=== PATIENT | male | born 1940 | race Caucasian/White ===

== ENCOUNTER 2021-12-06 18:54 | Emergency (ER) | payer MEDICARE, OTHER ==
--- NOTE | 2021-12-06 19:10 | ED Abdominal Pain ---
General Stated Complaint: ABD PAIN Source of Information: Patient History of Present Illness Date Seen by Provider: Dec 06, 2021 Time Seen by Provider: 19:06 Initial Comments 81-year-old male presenting with complaints of abdominal pain that has been w orsening over the last 2 to 3 weeks. He had been seen by Dr. Jack in the clinic today and reports that they did xrays of abdomen and felt he was "blocked up" so he was told to take Miralax and given prescription for Metoclopramide. Patient states that when he went to take the metoclopramide to return to take food with that. When he tried eating that caused him to have increased abdominal pain and retching. He has not had a normal bowel movement for several weeks. He has only had small thin ribbons of stool and with the MiraLAX he has had mostly just liquid stool. He has increased pain with trying to eat or drink. The pain is diffuse across his abdomen. He states he has had his gallbladder removed previously. he has not had fever or chills. He denies having pain with urination, blood in his stool, trauma to his abdomen Timing/Duration: Getting Worse (Over the last several weeks) Severity/Quality: Severe Location: Generalized Abdomen Activities at Onset: None Modifying Factors: Worsens With Eating Associated Symptoms: No Back Pain, No Chest Pain, No Diaphoresis, No Fever/Chills, No Fatigue, No Headache, No Heartburn; Nausea/Vomiting; No Rash, No Shortness of Air, No Swelling/Mass in Abdomen, No Syncope, No Weakness Allergies and Home Medications Allergies Coded Allergies: No Known Drug Allergies (Unverified , 12/06/21) Patient Home Medication List Home Medication List Reviewed: Yes Review of Systems Review of Systems Constitutional: No chills, No fever EENTM: No Symptoms Reported Respiratory: No Symptoms Reported Cardiovascular: No Symptoms Reported Gastrointestinal: See HPI Genitourinary: Denies Burning, Denies Discharge, Denies Pain Musculoskeletal: No joint pain, No joint swelling, No muscle pain Skin: No rash Psychiatric/Neurological: No Symptoms Reported Endocrine: No Symptoms Reported Physical Exam Vital Signs Vital Signs - First Documented 12/06/21 19:02 Temp 36.1 Pulse 83 Resp 18 B/P (MAP) 144/85 (104) Pulse Ox 98 O2 Delivery Room Air Capillary Refill : Height/Weight/BMI Height: '" Weight: lbs. oz. kg; BMI Method: General Appearance: WD/WN, no apparent distress HEENT: PERRL/EOMI, pharynx normal Neck: non-tender, full range of motion, supple, normal inspection Respiratory: chest non-tender, lungs clear, normal breath sounds, no re spiratory distress, no accessory muscle use Cardiovascular: normal peripheral pulses, regular rate, rhythm Gastrointestinal: soft, no pulsatile mass, abnormal bowel sounds (Hypoactive); No distended; guarding; No rebound; tenderness (Diffuse mild tenderness) Rectal: deferred Extremities: normal range of motion, non-tender, normal capillary refill Back: no CVA tenderness Neurologic/Psychiatric: alert, oriented x 3 Skin: normal color, warm/dry Progress/Results/Core Measures Results/Orders Lab Results Laboratory Tests Test 12/06/21 19:08 12/06/21 21:10 Range/Units White Blood Count 8.2 4.3-11.0 10^3/uL Red Blood Count 5.25 4.30-5.52 10^6/uL Hemoglobin 15.2 13.3-17.7 g/dL Hematocrit 42 40-54 % Mean Corpuscular Volume 80 80-99 fL Mean Corpuscular Hemoglobin 29 25-34 pg Mean Corpuscular Hemoglobin Concent 36 32-36 g/dL Red Cell Distribution Width 12.8 10.0-14.5 % Platelet Count 157 130-400 10^3/uL Mean Platelet Volume 8.8 L 9.0-12.2 fL Immature Granulocyte % (Auto) 0 % Neutrophils (%) (Auto) 74 42-75 % Lymphocytes (%) (Auto) 12 12-44 % Monocytes (%) (Auto) 10 0-12 % Eosinophils (%) (Auto) 3 0-10 % Basophils (%) (Auto) 0 0-10 % Neutrophils # (Auto) 6.0 1.8-7.8 10^3/uL Lymphocytes # (Auto) 1.0 1.0-4.0 10^3/uL Monocytes # (Auto) 0.8 0.0-1.0 10^3/uL Eosinophils # (Auto) 0.3 0.0-0.3 10^3/uL Basophils # (Auto) 0.0 0.0-0.1 10^3/uL Immature Granulocyte # (Auto) 0.0 0.0-0.1 10^3/uL Sodium Level 129 L 135-145 MMOL/L Potassium Level 3.4 L 3.6-5.0 MMOL/L Chloride Level 92 L 98-107 MMOL/L Carbon Dioxide Level 23 21-32 MMOL/L Anion Gap 14 5-14 MMOL/L Blood Urea Nitrogen 13 7-18 MG/DL Creatinine 0.76 0.60-1.30 MG/DL Estimat Glomerular Filtration Rate 91 BUN/Creatinine Ratio 17 Glucose Level 120 H 70-105 MG/DL Calcium Level 9.9 8.5-10.1 MG/DL Corrected Calcium 8.5-10.1 MG/DL Total Bilirubin 0.7 0.1-1.0 MG/DL Aspartate Amino Transf (AST/SGOT) 23 5-34 U/L Alanine Aminotransferase (ALT/SGPT) 25 0-55 U/L Alkaline Phosphatase 90 40-136 U/L Total Protein 7.1 6.4-8.2 GM/DL Albumin 4.7 H 3.2-4.5 GM/DL Lipase 141 H 8-78 U/L Urine Color YELLOW Urine Clarity CLEAR Urine pH 6.5 5-9 Urine Specific Tamiment <=1.005 1.016-1.022 Urine Protein NEGATIVE NEGATIVE Urine Glucose (UA) NEGATIVE NEGATIVE Urine Ketones NEGATIVE NEGATIVE Urine Nitrite NEGATIVE NEGATIVE Urine Bilirubin NEGATIVE NEGATIVE Urine Urobilinogen 0.2 < = 1.0 MG/DL Urine Leukocyte Esterase NEGATIVE NEGATIVE Urine RBC (Auto) NEGATIVE NEGATIVE Urine RBC NONE /HPF Urine WBC NONE /HPF Urine Squamous Epithelial Cells RARE /HPF Urine Crystals NONE /LPF Urine Bacteria NEGATIVE /HPF Urine Casts NONE /LPF Urine Mucus NEGATIVE /LPF Urine Culture Indicated NO My Orders Orders - FERN MICHAUD MD Comprehensive Metabolic Panel (12/06/21 19:09) Lipase (12/06/21 19:09) Ua Culture If Indicated (12/06/21 19:09) Ed Iv/Invasive Line Start (12/06/21 19:09) Cbc With Automated Diff (12/06/21 19:09) Ns Iv 500 Ml (Sodium Chloride 0.9%) (12/06/21 19:27) Ketorolac Injection (Toradol Injection) (12/06/21 19:27) Ct Abdomen/Pelvis W (12/06/21 19:27) Iohexol Injection (Omnipaque 350 Mg/Ml 1 (12/06/21 19:30) Received Contrast (Hold Metformin- Contr (12/06/21 19:30) Ns (Ivpb) (Sodium Chloride 0.9% Ivpb Bag (12/06/21 19:30) Ns Iv 1000 Ml (Sodium Chloride 0.9%) (12/06/21 22:09) Fentanyl Inj (Sublimaze Injection) (12/06/21 22:09) Medications Given in ED Current Medications Medications Dose Ordered Sig/Catalina Route Start Time Stop Time Status Last Admin Dose Admin Iohexol 100 ml ONCE ONCE IV 12/06/21 19:30 12/06/21 19:31 DC 12/06/21 19:56 100 ML Sodium Chloride 100 ml ONCE ONCE IV 12/06/21 19:30 12/06/21 19:31 DC 12/06/21 19:56 100 ML Vital Signs/I&O 12/06/21 12/06/21 19:02 23:10 Temp 36.1 Pulse 83 67 Resp 18 16 B/P (MAP) 144/85 (104) 136/86 Pulse Ox 98 97 O2 Delivery Room Air Room Air 12/07/21 00:00 Intake Total 1000 ml Balance 1000 ml Progress Progress Note #1: Progress Note Obtain basic labs and urinalysis. With his diffuse abdominal pain and worsening symptoms when trying to eat or drink anything will obtain a CT scan to evaluate in finer detail than the plain films that were obtained earlier. Ordered IV fluids 1 L normal saline for hydration, Toradol 15 mg IV for pain. Progress Note #2: Progress Note Labs appear stable without acute significant abnormality. CT scan showed large mass in the pancreas measured 8 x 8.3 cm. Discussed results with patient he did report that his pain was doing better. Will check with [facility] to see if he could be admitted for pain control as well as possible biopsy of the mass to determine its etiology and future treatment plan [address] Chavarria for [facility] at [facility]. She reported that she did not have anyone that would be able to do a biopsy of the pancreas at [facility] and recommended trying to get the patient to facility in [place] or [place]. The patient had voiced interest in going to [facility] since he had a friend with pancreatic cancer that goes there. 2142 I spoke with PARDEEP Nielson the nursing crane crew supervisor at [facility]. She took down information and will have the hospitalist call me back. 2200 nurse practitioner Tawana Lawson called back and accepted patient on behalf of Dr. Ramon. We will administer IV fluids and a dose of fentanyl for pain. Patient asked about driving to [facility] and started taking an ambulance. Advised that they would have to check out of the ED here and would have to start over in the emergency department at [facility] if they went by private vehicle. Diagnostic Imaging Diagonstic Imaging: CT Plain Films/CT/US/NM/MRI: abdomen, pelvis Comments [facility] [place], [place] NAME: DANIE ORELLANA [facility] REC#: [id number] PT STATUS: REG ER : 1940 PHYSICIAN: FERN MICHAUD MD ADMIT DATE: 12/06/21/ER FS Signed Date of Exam:12/06/21 CT ABDOMEN/PELVIS W PROCEDURE: CT abdomen and pelvis with contrast. TECHNIQUE: Multiple contiguous axial images were obtained through the abdomen and pelvis after administration of intravenous contrast. Auto Exposure Controls were utilized during the CT exam to meet ALARA standards for radiation dose reduction. All CT scans use one or more of the following dose optimizing techniques: automated exposure control, MA and/or KvP adjustment based on patient size and exam type or iterative reconstruction. DATE: December 06, 2021. COMPARISON: None. INDICATION: 81-year-old male, abdominal pain after eating. FINDINGS: The visualized portions of the lung bases are grossly clear. The heart is not enlarged. There is no pericardial effusion. There is a large hiatal hernia. There is diffuse abnormal wall thickening of the stomach. The liver is unremarkable in size and contour. There is no identified liver lesion. The main, right, and left portal veins are patent. The gallbladder is surgically absent. There is no intrahepatic or extrahepatic bile duct dilation. There is a large predominantly low-attenuation mass measuring approximately 8.0 x 8.3 cm in size centered in the region of the pancreatic head and proximal pancreatic body with extension beyond the expected pancreatic parenchymal margins. There is direct contact and narrowing of the main portal vein near the portal splenic confluence. 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 The additional portions of the splenic vein are patent outside of the mass. There is encasement of the common hepatic artery and splenic artery. There is also direct contact of the superior mesenteric artery near its origin. The mass extends very near the abdominal aorta on axial image 62. The mass also closely approximates the inferior vena cava although there does appear to be a thin preserved fat plane at this location. There is an accessory splenule. There is a low-attenuation splenic lesion on axial image 61 which is nonspecific measuring 11 mm in size. There are additional more subtle low-attenuation foci present in the spleen. The adrenal glands are unremarkable. There are benign renal cysts. The urinary collecting systems are not distended. There is no identified renal or ureteral stone. The urinary bladder is unremarkable. The prostate gland is prominent in size. The intestinal tract is not grossly distended. There is no free intraperitoneal air. There is no drainable fluid collection. There is no free fluid in the abdomen or pelvis. There are atherosclerotic calcifications. There is no identified abnormally enlarged lymph node in the abdomen or pelvis meeting CT size criteria for adenopathy. There are multilevel degenerative changes of the spine. There is no identified bone lesion suspicious for a bone metastasis. There is no identified acute bony abnormality. IMPRESSION: CT ABDOMEN AND PELVIS. 1. 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 2. Diffuse abnormal wall thickening of the stomach which may reflect gastritis or malignancy. Large hiatal hernia. 3. Nonspecific low-attenuation foci in the spleen. 4. The prostate gland is prominent in size. Dictated by: Dictated on workstation # [id number] Dict: 12/06/212012 Trans: 12/06/212040 [facility] [id number] Interpreted by: LAVINIA GOFF MD Electronically signed by: LAVINIA GOFF MD 12/06/212040 Reviewed: Reviewed by Ks Departure Impression Primary Impression: Diffuse abdominal pain Additional Impressions: Pancreatic mass Nausea and vomiting in adult Disposition: 02 XFER SHT-TRM HOSP Condition: Stable Transfer Transfer Reason: Exceeds level of care (Need for biopsy of pancreatic mass) Time Spoke to Accepting Phy: 22:01 Transfer Progress Notes Discussed with nurse practitioner Tawana Lawson who accepted on behalf of attending Dr. Ramon. Patient accepted for transfer and work-up of abdominal pain with pancreatic mass and concern for cancer. Transfer Facility: [facility] Method of Transfer: EMS Departure-Patient Inst. Referrals: CARMINA JACK MD (PCP/Family) Primary Care Physician FERN MICHAUD MD Dec 06, 2021 19:10
[2021-12-06 19:15] LABS: BASOPHILS % (AUTO) 0 % (0-10); EOSINOPHILS # (AUTO) 0.3 10^3/uL (0.0-0.3); EOSINOPHILS % (AUTO) 3 % (0-10); HEMATOCRIT 42 % (40-54); HEMOGLOBIN 15.2 g/dL (13.3-17.7); LYMPHOCYTES % (AUTO) 12 % (12-44); MEAN CORPUSCULAR HEMOGLOBIN 29 pg (25-34); MEAN CORPUSCULAR HGB CONC 36 g/dL (32-36); MEAN CORPUSCULAR VOLUME 80 fL (80-99); MEAN PLATELET VOLUME 8.8 fL (9.0-12.2); MONOCYTES # (AUTO) 0.8 10^3/uL (0.0-1.0); MONOCYTES % (AUTO) 10 % (0-12); NEUTROPHILS % (AUTO) 74 % (42-75); PLATELET COUNT 157 10^3/uL (130-400); WHITE BLOOD COUNT 8.2 10^3/uL (4.3-11.0)
[2021-12-06] MEDS ORDERED: KETOROLAC 30 MG/ML VIAL IVP STA (19:27)
[2021-12-06] MEDS ORDERED: NS IV 500 ML 500 ML IV STA (19:27)
[2021-12-06] MEDS ORDERED: HOLD METFORMIN - RECEIVED CONTRAST 20 ML VIAL IV SCH (19:30)
[2021-12-06] MEDS ORDERED: NS 100 ML (IVPB) BAG IV ONE (19:30)
[2021-12-06] MEDS ORDERED: IOHEXOL 350 MG/ML 100 ML (OMNIPAQUE 350) VIAL IV ONE (19:30)
[2021-12-06 19:35] LABS: ALANINE AMINOTRANSFERASE 25 U/L (0-55); ALBUMIN 4.7 GM/DL (3.2-4.5); ALKALINE PHOSPHATASE 90 U/L (40-136); BILIRUBIN,TOTAL 0.7 MG/DL (0.1-1.0); BUN/CREATININE RATIO 17; CALCIUM 9.9 MG/DL (8.5-10.1); CARBON DIOXIDE 23 MMOL/L (21-32); CHLORIDE 92 MMOL/L (98-107); CREATININE SERUM 0.76 MG/DL (0.60-1.30); GFR ESTIMATED 91; GLUCOSE 120 MG/DL (70-105); POTASSIUM 3.4 MMOL/L (3.6-5.0); SODIUM 129 MMOL/L (135-145); TOTAL PROTEIN 7.1 GM/DL (6.4-8.2)
[2021-12-06 19:36] LABS: LIPASE 141 U/L (8-78)
--- NOTE | 2021-12-06 20:30 | Diagnostic Imaging Report ---
PROCEDURE: CT abdomen and pelvis with contrast. TECHNIQUE: Multiple contiguous axial images were obtained through the abdomen and pelvis after administration of intravenous contrast. Auto Exposure Controls were utilized during the CT exam to meet ALARA standards for radiation dose reduction. All CT scans use one or more of the following dose optimizing techniques: automated exposure control, MA and/or KvP adjustment based on patient size and exam type or iterative reconstruction. DATE: December 06, 2021. COMPARISON: None. INDICATION: 81-year-old male, abdominal pain after eating. FINDINGS: The visualized portions of the lung bases are grossly clear. The heart is not enlarged. There is no pericardial effusion. There is a large hiatal hernia. There is diffuse abnormal wall thickening of the stomach. The liver is unremarkable in size and contour. There is no identified liver lesion. The main, right, and left portal veins are patent. The gallbladder is surgically absent. There is no intrahepatic or extrahepatic bile duct dilation. There is a large predominantly low-attenuation mass measuring approximately 8.0 x 8.3 cm in size centered in the region of the pancreatic head and proximal pancreatic body with extension beyond the expected pancreatic parenchymal margins. There is direct contact and narrowing of the main portal vein near the portal splenic confluence. 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 The additional portions of the splenic vein are patent outside of the mass. There is encasement of the common hepatic artery and splenic artery. There is also direct contact of the superior mesenteric artery near its origin. The mass extends very near the abdominal aorta on axial image 62. The mass also closely approximates the inferior vena cava although there does appear to be a thin preserved fat plane at this location. There is an accessory splenule. There is a low-attenuation splenic lesion on axial image 61 which is nonspecific measuring 11 mm in size. There are additional more subtle low-attenuation foci present in the spleen. The adrenal glands are unremarkable. There are benign renal cysts. The urinary collecting systems are not distended. There is no identified renal or ureteral stone. The urinary bladder is unremarkable. The prostate gland is prominent in size. The intestinal tract is not grossly distended. There is no free intraperitoneal air. There is no drainable fluid collection. There is no free fluid in the abdomen or pelvis. There are atherosclerotic calcifications. There is no identified abnormally enlarged lymph node in the abdomen or pelvis meeting CT size criteria for adenopathy. There are multilevel degenerative changes of the spine. There is no identified bone lesion suspicious for a bone metastasis. There is no identified acute bony abnormality. IMPRESSION: CT ABDOMEN AND PELVIS. 1. 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 2. Diffuse abnormal wall thickening of the stomach which may reflect gastritis or malignancy. Large hiatal hernia. 3. Nonspecific low-attenuation foci in the spleen. 4. The prostate gland is prominent in size. Dictated by: Dictated on workstation # [id number]
[2021-12-06 21:12] LABS: BILIRUBIN,URINE NEGATIVE (NEGATIVE); CLARITY,URINE CLEAR; COLOR,URINE YELLOW; GLUCOSE, URINE (UA) NEGATIVE (NEGATIVE); KETONES,URINE NEGATIVE (NEGATIVE); LEUKOCYTE ESTERASE ,URINE NEGATIVE (NEGATIVE); NITRITE,URINE NEGATIVE (NEGATIVE); PH,URINE 6.5 (5-9); PROTEIN,URINE NEGATIVE (NEGATIVE)
[2021-12-06 21:16] LABS: BACTERIA,URINE NEGATIVE /HPF; SQUAMOUS EPITHELIAL CELL,UR RARE /HPF
[2021-12-06] MEDS ORDERED: NS IV 1000 ML 1,000 ML IV STA (22:09)
[2021-12-06] MEDS ORDERED: fentaNYL INJ 100 MCG/2 ML AMP IVP STA (22:09)
[2021-12-06 23:10] VITALS: BP 136/86
== END 2021-12-07 00:07 | disposition short-term general hospital (02) ==
LOC: EDUNIT# 18:54 → ER FS 18:55
DX: K86.9 Disease of pancreas, unspecified (principal); R11.2 Nausea with vomiting, unspecified
CPT/HCPCS: 36415; 74177; 80053; 81000; 83690; 85025; Q9967

== ENCOUNTER 2022-05-26 16:32 | Emergency (ER) | payer MEDICARE, OTHER ==
[~2022-05-26] VITALS: Ht 170 cm; Wt 66.0 kg
[2022-05-26] MEDS ORDERED: NS IV 1000 ML 1,000 ML IV STA (17:14)
--- NOTE | 2022-05-26 17:30 | Diagnostic Imaging Report ---
EXAMINATION: Chest, one view. HISTORY: Cough. COMPARISON: None available. FINDINGS: Heart size and pulmonary vasculature are normal. There are mild bibasilar opacities. No pleural effusion or pneumothorax. The osseous structures are intact. Redemonstrated findings of a midline hiatal hernia. IMPRESSION: 1. No acute radiographic abnormality in the chest. Dictated by: Dictated on workstation # [id number]
--- NOTE | 2022-05-26 17:33 | ED General ---
General Chief Complaint: Fever-Adult/Adol Stated Complaint: FEVER,COUGH,NAUSEA Nursing Triage Note: Patient has presented to the ER with cc of fever, weakness, cough, body ache, and stomach ache. Patient reports that he got his 4th covid booster last Monday and he has not felt well the past week. He feels worse today. Source of Information: Patient History of Present Illness Date Seen by Provider: May 26, 2022 Time Seen by Provider: 17:17 Initial Comments 81-year-old male presenting with complaints of generalized fever, chills, rigors, body aches, cough, general weakness, epigastric tenderness with nausea. He states this is been building up since he had his fourth COVID shot on May 20. He denies any ill contacts. 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 He finished his treatments at the end of March and has been evaluated by his oncology doctor, Dr. Edgar Santoro, and felt to be stable and improved to point he could do follow up q 3 months. Timing/Duration: 1 Week Severity: Severe Modifying Factors: worse with Movement (activity makes him feel worse) Associated Systoms: No Chest Pain; Cough (mild non-productive), Diaphoresis, Fever/Chills, Headaches, Loss of Appetite, Malaise; No Rash, No Seizure, No Shortness of Air, No Syncope, No Weakness Allergies and Home Medications Allergies Coded Allergies: No Known Drug Allergies (Unverified , 12/06/21) Patient Home Medication List Home Medication List Reviewed: Yes Levofloxacin (Levofloxacin) 750 Mg Tablet, 750 MG PO DAILY Prescribed by: FERN MICHAUD on 05/26/222023 Review of Systems Review of Systems Constitutional: see HPI, chills, fever, malaise, weakness EENTM: No epistaxis, No nose congestion Respiratory: see HPI Cardiovascular: No chest pain Gastrointestinal: see HPI, abdominal pain (epigastric), loss of appetite, nausea; No vomiting Genitourinary: No dysuria, No frequency, No hematuria Musculoskeletal: no symptoms reported Skin: No rash Psychiatric/Neurological: See HPI Past Nnplsqf-Ttwziw-Xdakut Hx Patient Social History Tobacco Use?: No Use of E-Cig and/or Vaping dev: No Substance use?: No Alcohol Use?: No Pt feels they are or have been: Unable to obtain Past Medical History Surgery/Hospitalization HX: Pancreatic mass, Finished chemotherapy 04/13/2022 Physical Exam Vital Signs Vital Signs - First Documented 05/26/22 17:18 Temp 37.3 Pulse 104 Resp 96 B/P (MAP) 126/71 (89) Pulse Ox 96 O2 Delivery Room Air Capillary Refill : Height, Weight, BMI Height: '" Weight: lbs. oz. kg; 22.00 BMI Method: General Appearance: Mild Distress, Thin HEENT: PERRL/EOMI, Pharynx Normal Neck: Full Range of Motion, Normal Inspection, Non Tender, Supple Respiratory: Chest Non Tender, Lungs Clear, Normal Breath Sounds, No Accessory Muscle Use, No Respiratory Distress Cardiovascular: Regular Rate, Rhythm, Normal Peripheral Pulses Gastrointestinal: Normal Bowel Sounds, No Pulsatile Mass, Non Tender, Soft Rectal: Deferred Extremity: Normal Capillary Refill, Normal Inspection, No Pedal Edema Neurologic/Psychiatric: Alert, Oriented x3, phd intern II-XII Norm as Tested Skin: Normal Color, Warm/Dry Focused Exam Lactate Level 05/26/22 17:00: Lactic Acid Level 1.61 Lactic Acid Level Laboratory Tests Test 05/26/22 17:00 Lactic Acid Level 1.61 MMOL/L (0.50-2.00) Progress/Results/Core Measures Suspected Sepsis SIRS Temperature: Pulse: 104 Respiratory Rate: 96 Laboratory Tests 05/26/22 17:00: White Blood Count 1.7L Blood Pressure 126 /71 Mean: 89 05/26/22 17:00: Lactic Acid Level 1.61 Laboratory Tests 05/26/22 17:00: Creatinine 0.66, Platelet Count 152, Total Bilirubin 1.0 Results/Orders Lab Results Laboratory Tests Test 05/26/22 17:00 05/26/22 18:00 Range/Units White Blood Count 1.7 L 4.3-11.0 10^3/uL Red Blood Count 3.35 L 4.30-5.52 10^6/uL Hemoglobin 11.4 L 13.3-17.7 g/dL Hematocrit 31 L 40-54 % Mean Corpuscular Volume 93 80-99 fL Mean Corpuscular Hemoglobin 34 25-34 pg Mean Corpuscular Hemoglobin Concent 37 H 32-36 g/dL Red Cell Distribution Width 12.0 10.0-14.5 % Platelet Count 152 130-400 10^3/uL Mean Platelet Volume 9.1 9.0-12.2 fL Immature Granulocyte % (Auto) 1 % Neutrophils (%) (Auto) 3 L 42-75 % Lymphocytes (%) (Auto) 32 12-44 % Monocytes (%) (Auto) 60 H 0-12 % Eosinophils (%) (Auto) 4 0-10 % Basophils (%) (Auto) 1 0-10 % Neutrophils # (Auto) 0.1 L 1.8-7.8 X 10^3 Lymphocytes # (Auto) 0.5 L 1.0-4.0 X 10^3 Monocytes # (Auto) 1.0 0.0-1.0 X 10^3 Eosinophils # (Auto) 0.1 0.0-0.3 10^3/uL Basophils # (Auto) 0.0 0.0-0.1 10^3/uL Immature Granulocyte # (Auto) 0.0 0.0-0.1 10^3/uL Neutrophils % (Manual) 1 % Lymphocytes % (Manual) 45 % Monocytes % (Manual) 44 % Eosinophils % (Manual) 6 % Basophils % (Manual) 0 % Band Neutrophils 0 % Atypical Lymphocytes 3 % Blast Cells 1 % Anisocytosis SLIGHT Sodium Level 133 L 135-145 MMOL/L Potassium Level 3.7 3.6-5.0 MMOL/L Chloride Level 97 L 98-107 MMOL/L Carbon Dioxide Level 22 21-32 MMOL/L Anion Gap 14 5-14 MMOL/L Blood Urea Nitrogen 14 7-18 MG/DL Creatinine 0.66 0.60-1.30 MG/DL Estimat Glomerular Filtration Rate 95 BUN/Creatinine Ratio 21 Glucose Level 137 H 70-105 MG/DL Lactic Acid Level 1.61 0.50-2.00 MMOL/L Calcium Level 9.3 8.5-10.1 MG/DL Corrected Calcium 9.5 8.5-10.1 MG/DL Total Bilirubin 1.0 0.1-1.0 MG/DL Aspartate Amino Transf (AST/SGOT) 17 5-34 U/L Alanine Aminotransferase (ALT/SGPT) 14 0-55 U/L Alkaline Phosphatase 55 40-136 U/L C-Reactive Protein 9.17 H <0.50 MG/DL Total Protein 6.0 L 6.4-8.2 GM/DL Albumin 3.8 3.2-4.5 GM/DL Influenza Type A (RT-PCR) Not Detected Not Detecte Influenza Type B (RT-PCR) Not Detected Not Detecte SARS-CoV-2 RNA (RT-PCR) Not Detected Not Detecte Urine Color YELLOW Urine Clarity CLEAR Urine pH 6.0 5-9 Urine Specific [place] 1.025 H 1.016-1.022 Urine Protein NEGATIVE NEGATIVE Urine Glucose (UA) NEGATIVE NEGATIVE Urine Ketones 1+ H NEGATIVE Urine Nitrite NEGATIVE NEGATIVE Urine Bilirubin NEGATIVE NEGATIVE Urine Urobilinogen 2.0 < = 1.0 MG/DL Urine Leukocyte Esterase NEGATIVE NEGATIVE Urine RBC (Auto) NEGATIVE NEGATIVE Urine RBC NONE /HPF Urine WBC 0-2 /HPF Urine Squamous Epithelial Cells 0-2 /HPF Urine Crystals NONE /LPF Urine Bacteria TRACE /HPF Urine Casts NONE /LPF Urine Mucus MODERATE H /LPF Urine Culture Indicated NO My Orders Orders - FERN MICHAUD MD Cbc With Automated Diff (05/26/22 17:14) Comprehensive Metabolic Panel (05/26/22 17:14) Blood Culture (05/26/22 17:14) Ua Culture If Indicated (05/26/22 17:14) Chest 1 View Ap/Pa Only (05/26/22 17:14) Ed Iv/Invasive Line Start (05/26/22 17:14) Crp Fs (05/26/22 17:14) Lactic Acid Analyzer (05/26/22 17:14) Ns Iv 1000 Ml (Sodium Chloride 0.9%) (05/26/22 17:14) Covid 19 Inhouse Test (05/26/22 17:14) Influenza A And B By Pcr (05/26/22 17:14) Manual Differential (05/26/22 17:00) Levofloxacin Tablet (Levaquin Tablet) (05/26/22 20:19) Vital Signs/I&O 05/26/22 05/26/22 17:18 20:44 Temp 37.3 Pulse 104 78 Resp 96 18 B/P (MAP) 126/71 (89) 134/65 Pulse Ox 96 98 O2 Delivery Room Air Room Air 05/27/22 00:00 Intake Total 1000 ml Balance 1000 ml Capillary Refill : Blood Pressure Mean: 89 Progress Note #1: Progress Note Obtain basic labs including blood cultures with lactic acid. COVID swab with influenza. Chest x-ray to evaluate for possible pneumonia and or source of his reported fever. Administer normal saline 1 L IV fluid bolus for hydration. Differential diagnosis includes pneumonia, reaction to COVID-vaccine, UTI, viral syndrome Progress Note #2: Progress Note Labs shows white blood cell count is low at 1.7 with an ANC of 1. He did not have acute significant abnormality on his chemistry panel. His lactic acid was normal at 1.61. No sign of acute infiltrate or pulmonary process on chest x- ray. Patient was feeling a little bit better after fluids. Urinalysis was clear of infection as well. @1948 and I placed a page for Dr. Edgar Santoro, his oncologist out of [place]. [address] Santoro and he was in agreement with treating the patient for neutropenia and fever. He did not feel that this was related to his chemotherapy and cancer treatment since he had finished over 6 weeks prior. However, with him being neutropenic and reporting fever with chills and rigors from home will cover with Levofloxacin to treat for his neutropenic fever and no specific source of his fever or neutropenia. Check back with clinic over the phone or be seen if not improving over the next week. Encourage fluids and hydration. Diagnostic Imaging Diagonstic Imaging: Xray Plain Films/CT/US/NM/MRI: chest Comments [facility]. [place], [place] NAME: DANIE ORELLANA [facility] REC#: [id number] PT STATUS: REG ER : 1940 PHYSICIAN: FERN MICHAUD MD ADMIT DATE: 05/26/22/ER FS Signed Date of Exam:05/26/22 CHEST 1 VIEW AP/PA ONLY EXAMINATION: Chest, one view. HISTORY: Cough. COMPARISON: None available. FINDINGS: Heart size and pulmonary vasculature are normal. There are mild bibasilar opacities. No pleural effusion or pneumothorax. The osseous structures are intact. Redemonstrated findings of a midline hiatal hernia. IMPRESSION: 1. No acute radiographic abnormality in the chest. Dictated by: Dictated on workstation # [id number] Dict: 05/26/221726 Trans: 05/26/221815 [id number] Interpreted by: YOHANNES BE DO Electronically signed by: YOHANNES BE DO 05/26/221815 Reviewed: Reviewed by Me Departure Impression Primary Impression: Neutropenia with fever Disposition: 01 HOME, SELF-CARE Condition: Stable Departure-Patient Inst. Decision time for Depature: 20:21 Referrals: CARMINA JACK MD (PCP/Family) Primary Care Physician Patient Instructions: Fever, Adult ED, Neutropenia (DC) Add. Discharge Instructions: Stay well hydrated and drink plenty of fluids and electrolyte drinks. Take the course of antibiotics to treat for possible bacterial infection. Check in with Dr. Santoro over the phone within the next week, or sooner if having worsening symptoms. Have the lab draw a CBC (Complete Blood Count) when you have your Lipids drawn next week before your check with Dr. Jack Isolate from other people and wear a mask as you are at risk of getting infection with your White Blood Cells as low as they are now. All discharge instructions reviewed with patient and/or family. Voiced understanding. Scripts Levofloxacin (Levofloxacin) 750 Mg Tablet 750 MG PO DAILY for Neutropenic Fever for 6 Days, #6 TAB 0 Refills Prov: FERN MICHAUD MD 05/26/22 FERN MICHAUD MD May 26, 2022 17:33
[2022-05-26 17:41] LABS: HEMATOCRIT 31 % (40-54); HEMOGLOBIN 11.4 g/dL (13.3-17.7); MEAN CORPUSCULAR HEMOGLOBIN 34 pg (25-34); MEAN CORPUSCULAR HGB CONC 37 g/dL (32-36); MEAN CORPUSCULAR VOLUME 93 fL (80-99); MEAN PLATELET VOLUME 9.1 fL (9.0-12.2); PLATELET COUNT 152 10^3/uL (130-400); WHITE BLOOD COUNT 1.7 10^3/uL (4.3-11.0)
[2022-05-26 17:42] LABS: BASOPHILS % (AUTO) 1 % (0-10); EOSINOPHILS # (AUTO) 0.1 10^3/uL (0.0-0.3); EOSINOPHILS % (AUTO) 4 % (0-10); LYMPHOCYTES # (AUTO) 0.5 X 10^3 (1.0-4.0); LYMPHOCYTES % (AUTO) 32 % (12-44); MONOCYTES % (AUTO) 60 % (0-12); NEUTROPHILS # (AUTO) 0.1 X 10^3 (1.8-7.8); NEUTROPHILS % (AUTO) 3 % (42-75)
[2022-05-26 17:46] LABS: POTASSIUM 3.7 MMOL/L (3.6-5.0)
[2022-05-26 17:47] LABS: ALBUMIN 3.8 GM/DL (3.2-4.5); CALCIUM 9.3 MG/DL (8.5-10.1); CREATININE SERUM 0.66 MG/DL (0.60-1.30)
[2022-05-26 18:18] LABS: BILIRUBIN,URINE NEGATIVE (NEGATIVE); CLARITY,URINE CLEAR; COLOR,URINE YELLOW; GLUCOSE, URINE (UA) NEGATIVE (NEGATIVE); KETONES,URINE 1+ (NEGATIVE); LEUKOCYTE ESTERASE ,URINE NEGATIVE (NEGATIVE); NITRITE,URINE NEGATIVE (NEGATIVE); PROTEIN,URINE NEGATIVE (NEGATIVE)
[2022-05-26 18:26] LABS: BACTERIA,URINE TRACE /HPF; SQUAMOUS EPITHELIAL CELL,UR 0-2 /HPF; WBC,URINE 0-2 /HPF
[2022-05-26 18:45] LABS: ANISOCYTOSIS SLIGHT; ATYPICAL LYMPHOCYTES 3 %; BAND NEUTROPHILS 0 %; BASOPHILS % (MANUAL) 0 %; BLAST CELLS 1 %; EOSINOPHILS % (MANUAL) 6 %; LYMPHOCYTES % (MANUAL) 45 %; MONOCYTES % (MANUAL) 44 %; NEUTROPHILS % (MANUAL) 1 %
[2022-05-26] MEDS ORDERED: LEVO750T PO (20:24)
[2022-05-26 20:44] VITALS: BP 134/65
== END 2022-05-26 20:46 | disposition home or self-care (01) ==
LOC: EDUNIT# 16:32 → ER FS 16:33
DX: D70.9 Neutropenia, unspecified (principal); R50.81 Fever presenting with conditions classified elsewhere; Z20.822 Contact with and (suspected) exposure to COVID-19
CPT/HCPCS: 36415; 71045; 80053; 81000; 83605; 85007; 85027; 86141; 87040; 87636